=== PATIENT | female | born 1955 | race Caucasian/White ===

== ENCOUNTER 2016-03-13 08:07 | Day surgery (SDC) | payer BC ==
[~2016-03-13] VITALS: Ht 167.6 cm; Wt 72.7 kg
[~2016-03-13 08:07] MED LIST: ACET500T98 PO; ASPI-535 PO; benazepril PO; creon PO; metformin PO
[2016-03-13 08:50] VITALS: Ht 167.6 cm; Wt 72.7 kg
[2016-03-13] MEDS ORDERED: RELIEF PO (08:57)
[2016-03-13] MEDS ORDERED: NEXIUM PO (08:57)
[2016-03-13 09:23] VITALS: BP 173/84; PULSE 55; RESP 24
[2016-03-13] MEDS ORDERED: MIDAZOLAM 1 MG/ML 2 ML INJ ONE ×2 (10:37)
[2016-03-13] MEDS ORDERED: FENTAnyl 50 MCG/ML VIAL ONE (10:37)
[2016-03-13 10:53] VITALS: BP 135/74; RESP 20
--- NOTE | 2016-03-14 00:35 | GILP ---
DATE OF PROCEDURE: NAME OF PROCEDURE: Colonoscopy. SURGEON: Melania Cordero MD PREOPERATIVE DIAGNOSIS: Screening colonoscopy. POSTOPERATIVE DIAGNOSES 1. Colonoscopy all the way to the cecum. 2. Poor prep making the exam suboptimal. 3. Internal hemorrhoids. 4. No gross neoplasm was identified. INDICATION FOR THE PROCEDURE: Ms. Xochitl Viveros is a 60-year-old female patient who was scheduled for screening colonoscopy. The procedure and possible complications were well explained to the patient, she understood and cons ented to the procedure. DESCRIPTION OF PROCEDURE: Under the influence of fentanyl and Versed, the colonoscope was carefully introduced in the rectum and under direct vision, it was advanced all the way to the cecum. FINDINGS: The patient had poor prep making the exam suboptimal. The patient was noted to have inte rnal hemorrhoids. No gross neoplasm was identified. She tolerated the procedure very well and there was no complication from the procedure. At the end of the procedures, she was awake with stable vital signs and she was discharged home to the care of her family. IMPRESSION: 1. Colonoscopy all the way to the cecum. 2. Poor prep making the exam suboptimal. 3. Internal hemorrhoids. 4. No colon neoplasm was identified. PLAN: Because of the suboptimal nature of the examination, the patient will need repeat colonoscopy with better preparation in 2 years. Dictated By: MELANIA HARRIS/LYNSEY Conf#: [id number] DID#: [id number]
== END 2016-03-13 11:43 | disposition home or self-care (01) ==
LOC: GIL 08:07
PROVIDERS: ATTEND Internal Medicine Gastroenterology
DX: Z12.11 Encounter for screening for malignant neoplasm of colon (principal); K64.8 Other hemorrhoids; I10 Essential (primary) hypertension; E11.9 Type 2 diabetes mellitus without complications
CPT/HCPCS: 45378; 82962; J2250; J3010; Z7610

== ENCOUNTER 2017-04-28 02:57 | Inpatient (IN) | END 2017-04-29 11:25 | disposition home or self-care (01) | DRG 694 ==

== ENCOUNTER 2017-05-02 17:39 | Emergency (ER) | END 2017-05-02 21:39 | disposition home or self-care (01) ==

== ENCOUNTER 2017-05-28 11:54 | Emergency (ER) | END 2017-05-28 15:55 | disposition home or self-care (01) ==

== ENCOUNTER 2017-08-07 12:21 | Day surgery (SDC) | END 2017-08-07 17:16 | disposition home or self-care (01) ==

== ENCOUNTER 2018-07-30 06:19 | Inpatient (IN) | payer BC ==
[2018-07-30] VITALS (25 sets, daily range): BP systolic 104–150; BP diastolic 59–75; PULSE 54–74; RESP 15–25; Ht 165.1 cm; Wt 60.8 kg
[~2018-07-30] VITALS: Ht 165.1 cm; Wt 60.8 kg
[~2018-07-30 06:19] MED LIST changes: -ACET500T98 PO; -ASPI-535 PO; +BENA40TA56 PO; +CEFAZOLIN 2 GM/50 ML (PMX) 50 ML IVPB SCH; +ESOM40CA PO; +LIPA1CAP PO; +METF850T13 PO; +SOD CHLORIDE 0.9% 1,000 ML IV SCH; -benazepril PO; -creon PO; -metformin PO
[2018-07-30] MEDS ORDERED: METF100010 ORAL (08:35)
[2018-07-30] MEDS ORDERED: LIPA1CAP45 ORAL (08:35)
[2018-07-30] MEDS ORDERED: GLIM4TAB ORAL (08:36)
[2018-07-30] MEDS ORDERED: BUPIVACAINE 0.25% (MPF) 30 ML INJ ONE (10:16)
--- NOTE | 2018-07-30 10:39 | PREAC ---
Date/Time of Note Date/Time of Note DATE: 07/30/18 TIME: 10:37 Anesthesia Eval and Record Evaluation Time Pre-Procedure Interview DATE: 07/30/18 TIME: 10:37 Age 63 Sex female NPO: 8 hrs Preoperative diagnosis Thyroid mass Planned procedure Total Thyroidectomy Past Medical History Past Medical History: Includes Cardio: HTN, Dyslipidemia Endo: Diabetes GI: GERD Surgery & Anesthesia Issues No known issue Meds Anticoagulation: No Beta Shelbie within 24 hr: No Reason Beta Shelbie not given: Pt. not on B-Shelbie Reported Medications Glimepiride* (Glimepiride*) 4 Mg Tablet, 1 TAB ORAL BID 07/30/18 Jvjfat-Suxkaavl-Hxsapfw* (Diamond CARRILLO* 36,000) 36,000 L-114,000-180,000 Unit Capsule., 1 CAP ORAL DAILY 07/30/18 Metformin Hcl* (Metformin Hcl*) 1,000 Mg Tablet, 1 TAB ORAL BID 07/30/18 Esomeprazole Mag Trihydrate (Nexium) 40 Mg Capsule., 40 MG PO DAILY, #30 CAP 08/07/17 Benazepril Hcl* (Benazepril Hcl*) 40 Mg Tablet, 40 MG PO DAILY, #30 05/28/17 Discontinued Reported Medications Qvybpa-Lqersrtb-Jwpljft* (Diamond CARRILLO* 3,000) 3,000 L-9,500-15,000 Unit Capsule., 3000 MG PO DAILY, #30 05/28/17 Metformin Hcl* (Metformin Hcl*) 850 Mg Tablet, 850 MG PO BID, #60 05/28/17 Current Medications Sodium Chloride 1,000 ml @ 75 mls/hr [id number] IV Last administered on 07/30/18at 08:53; Admin Dose 75 MLS/HR; Start 07/30/18 at 06:00; Stop 07/30/18 at 19:19 Cefazolin Sodium/ Dextrose 50 ml @ 100 mls/hr PREOP IVPB ; Start 07/30/18 at 06:00; Stop 07/30/18 at 16:00 Meds reviewed: Yes Allergies Coded Allergies: No Known Allergy (Unverified , 07/30/18) Allergies Reviewed: Yes Labs/Studies Labs Reviewed: Reviewed by anesthesiologist test: N/A Studies: ECG Pre-procedure Exam Last vitals Vital Signs Date Temp Pulse Resp B/P (MAP) Pulse Ox O2 O2 Flow FiO2 Time Delivery Rate 07/30/18 98.3 72 16 123/75 99 Room Air 08:31 (91) Airway: Adequate mouth opening, Adequate thyromental dist Mallampati: Mallampati II Teeth: Normal Lung: Normal Heart: Normal ASA Physical Status ASA physical status: 3 Emergency: None Planned Anesthetic General/MAC: ETT Planned Pain Management Parenteral pain med Pre-operative Attestations Prior to commencing anesthesia and surgery, the patient was re-evaluated, there was verification of: *The patient's identity *The results of appropriate recent lab work and preoperative vital signs *The above evaluation not changing prior to induction *Anesthetic plan, risk benefits, alternative and complications discussed with patient/family; questions answered; patient/family understands, accepts and wishes to proceed. ALEXANDRA CHOI MD Jul 30, 2018 10:39
[2018-07-30] MEDS ORDERED: MIDAZOLAM 1 MG/ML 2 ML INJ ONE (10:41)
[2018-07-30] MEDS ORDERED: hydrALAzine 20 MG INJ ONE (11:30)
[2018-07-30] MEDS ORDERED: ONDANSETRON 4 MG INJ ONE ×2 (12:14→12:35)
[2018-07-30] MEDS ORDERED: LIDOCAINE 2% (SDV) 5 ML INJ ONE (12:16)
[2018-07-30] MEDS ORDERED: ETOMIDATE 20 MG INJ ONE (12:16)
[2018-07-30] MEDS ORDERED: ROCURONIUM 50 MG INJ ONE (12:16)
[2018-07-30] MEDS ORDERED: CEFAZOLIN 1 GM INJ ONE (12:16)
--- NOTE | 2018-07-30 12:22 | OPR ---
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 total thyroidectomy 2. platysmal localized adjacent tissue transfer with the use of skin flaps 14 sq cm defect of the anterior neck 3. 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 She underwent genetic testing which indicated a high risk for cancer. She is brought to the OR for a total thyroidectomy. Risks alternatives benefits and personal were discussed the patient. Potential complications including but not limited to bleeding infection recurrent laryngeal nerve injury with sequelae of voice changes versus hoarseness and possible need for tracheostomy if both nerve s were injured. She expressed understanding and consents to the operation. Procedure Description Patient is taken to the OR and prepped and draped in usual sterile fashion. Surgical timeout was performed. IV antibiotics given. Collar incision was made with a 15 blade. Dissection cautery was carried down through the platysmal layer. Superior inferior platysmal flaps are created. Strap muscles were then divided in the midline. Felton retractors were placed. Attention was then pa id to the left thyroid. The left superior and inferior poles were mobilized. The middle thyroidal vein is ligated with handheld LigaSure. Continued blunt dissection was made laterally pain careful attention to the recurrent laryngeal nerve. This area was then mobilized anteriorly. The posterior is small spaces also bluntly dissected out and mobilized. Attention was then paid to the right thyroid. The middle thyroid vein is ligated using a LigaSure. The superior inferior poles were mobilized using handheld LigaSure. Great attention was paid to keep the recurrent laryngeal nerve out of harm's way and the right thyroid was reflected anteriorly. The specimen was then removed from the surgical site and surgical markings were placed. Single short right upper pole single long right lower pole double short left upper pole double long left lower pole markings were placed. The surgical site is irrigated and a Valsalva maneuver of 40 cm of water was performed. There is no evidence of any bleeding. The irri gation is suctioned out and the strap muscles were reapproximated with interrupted 3-0 Vicryl. Due to the tissue defect localization to his transfer with these of skin flaps was performed. Multilayer closed with interrupted 3-0 Vicryl with approximation of the superior inferior platysmal flaps and the skin is closed using running 4-0 Monocryl. Therapeutic subcutaneous local anesthesia was injected at the incision site. Steri-Strips and dry dressings were applied. Fernando REEVES Jul 30, 2018 12:22
[2018-07-30] MEDS ORDERED: LABETALOL HCL 20MG INJ IV PRN (12:30)
[2018-07-30] MEDS ORDERED: ONDANSETRON 4 MG INJ IV PRN (12:30)
[2018-07-30] MEDS ORDERED: HYDROCODONE/APAP (5/325) TAB PO PRN (12:30)
[2018-07-30] MEDS ORDERED: MEPERIDINE 25 MG INJ IV PRN (12:30)
[2018-07-30] MEDS ORDERED: HYDROmorphONE 1 MG/5 ML IV SYRINGE IV PRN ×2 (12:30)
[2018-07-30] MEDS ORDERED: METOCLOPRAMIDE 10 MG INJ IV PRN (12:30)
[2018-07-30] MEDS ORDERED: FENTAnyl 50 MCG/ML VIAL IV PRN (12:30)
[2018-07-30] MEDS ORDERED: morphine 2 MG INJ IV PRN (12:30)
[2018-07-30] MEDS ORDERED: DIPHENHYDRAMINE 50 MG INJ IV PRN (12:30)
--- NOTE | 2018-07-30 12:33 | PAC ---
Date/Time of Note Date/Time of Note DATE: 07/30/18 TIME: 12:32 Post-Anesthesia Notes Post-Anesthesia Note Last documented vital signs Vital Signs Date Temp Pulse Resp B/P (MAP) Pulse Ox O2 O2 Flow FiO2 Time Delivery Rate 07/30/18 98.3 72 16 123/75 99 Room Air 08:31 (91) Activity: WNL Respiratory function: WNL Cardiovascular function: WNL Mental status: Baseline Pain reasonably controlled: Yes Hydration appropriate: Yes Nausea/Vomiting absent: Yes Comments BP:117/64, P:72, Spo2:100%, T:98,8 ALEXANDRA CHOI MD Jul 30, 2018 12:33
[2018-07-30] MEDS: SOD CHLORIDE 0.9% 1,000 ML IV SCH ×2 (16:21→22:16)
[2018-07-30] MEDS: INSULIN ASPART [NOVOLOG] 3 ML PEN SC SCH ×2 (17:55→21:28)
[2018-07-30] MEDS: metFORMIN 500 MG TAB PO SCH (17:58)
[2018-07-30] MEDS: CEFAZOLIN 2 GM/50 ML (PMX) 50 ML IVPB SCH (18:00)
--- NOTE | 2018-07-30 20:26 | HP ---
DATE OF ADMISSION: 07/30/2018 CHIEF COMPLAINT AND HISTORY OF PRESENT ILLNESS: The patient is a 63-year-old female with history of pancreatic tumor, status post Whipple procedure, hypertension, diabetes, history of left ureteral sto ne. The patient was seen by Dr. Thornton as an outpatient. The patient had follicle cells on fine needle aspiration of thyroid. She underwent genetic testing which indicated high risk cancer. The patient was brought into hospital today and underwent total thyroidectomy. The patient has significant post operative pain and is being admitted for further evaluation and management. The patient denied any c hest pain or shortness of breath. No reported abdominal pain. No reported headache and syncope. No history of leg pain. No history of numbness, tingling in any extremity. REVIEW OF SYSTEMS: Other than postoperative pain, rest of review of systems was unremarkable. ALLERGIES: NONE. PAST SURGICAL HISTORY: As stated above. In addition, the patient is also status post cholecystectom y and hysterectomy. FAMILY HISTORY: Positive for pancreatic tumor in sister. SOCIAL HISTORY: Positive for smoking. PHYSICAL EXAMINATION: GENERAL: Revealed the patient to be awake, alert. VITAL SIGNS: Temperature 97.6, pulse 66, respirations 16, blood pressure 112/62, O2 saturation 97% o n 2 liters nasal cannula. HEENT: No eye discharge or redness. Conjunctivae and lids are normal. Nose and ears are normal. NECK: The patient is status post total thyroidectomy. CHEST: Fairly clear. CARDIOVASCULAR: S1, S2 normal. No murmur. ABDOMEN: Soft, nondistended, nontender. EXTREMITIES: No edema. NEUROLOGIC: The patient is awake, alert with no gross focal deficit. LABORATORY DATA: Done this morning: WBC 11.6, hemoglobin 11.2, platelet 275. Sodium 141, potassium 3.7, BUN 13, creatinine 0.5. AST 14, ALT 18, alkaline phosphatase 53, albumin 3.6. IMPRESSION: 1. Follicular cells on FNA of thyroid, status post total thyroidectomy. 2. Diabetes. 3. Hypertension. 4. History of gastric ulcer. PLAN: The patient will be admitted on medical floor. The patient will be started on diet. For pain control, the patient will be given Tylenol, Alex and IV morphine. The patient's home medication in cluding benazepril, proton pump inhibitor, Creon and metformin were discontinued. We will hold off o n Amaryl. She will be put on sliding scale insulin. Further evaluation and management will depend o n patient's hospital course. We will use SCD for DVT prophylaxis. Dictated By: OJSE L ABRAHAM/LYNSEY Conf#: [id number] DID#: [id number] CC: BEE THORNTON MD;*End*
[2018-07-31 00:01] VITALS: BP 134/65; PULSE 66; RESP 17
[2018-07-31] MEDS: CEFAZOLIN 2 GM/50 ML (PMX) 50 ML IVPB SCH ×2 (02:26→10:37)
[2018-07-31] MEDS ORDERED: PANTOPRAZOLE (EC) 40 MG TAB PO SCH (06:00)
[2018-07-31] MEDS: SOD CHLORIDE 0.9% 1,000 ML IV SCH (06:00)
[2018-07-31 07:35] VITALS: BP 128/71; PULSE 68; RESP 18
[2018-07-31] MEDS: metFORMIN 500 MG TAB PO SCH (08:50)
[2018-07-31] MEDS: INSULIN ASPART [NOVOLOG] 3 ML PEN SC SCH ×2 (08:52→13:11)
[2018-07-31] MEDS ORDERED: BENAZEPRIL 40 MG TAB PO SCH (09:00)
[2018-07-31] MEDS ORDERED: CREON (12k-38k-60k) 1 CAP PO SCH (09:00)
--- NOTE | 2018-07-31 09:59 | PDOCDIS ---
Discharge Instructions CONDITION [id number] Patient Condition: [id number] Stable HOME CARE INSTRUCTIONS: [id number] Diet Instructions: Jfvno1h ACTIVITY: Prijx2Zz Activity Restrictions: Ebixh1j Slowly Increase Activity Rest between Activity Avoid heavy lifting Do not operate Machinery Do not operate Power Tool Avoid Heavy Housework [id number] Bathing Restrictions: Ibewo2l Sponge Bath FOLLOW UP/APPOINTMENTS Follow-up Plan FU W/Primary r MD Call 911 or go to the nearest hospital if symptoms get worse dw patient NAVYA KUHN Jul 31, 2018 09:58
--- NOTE | 2018-07-31 13:20 | PN ---
DATE: 07/31/2018 Postop day #1 status post total thyroidectomy for follicular lesion of the left thyroid. SUBJECTIVE: Feels good. No complaint, minimal pain, no nausea, no vomiting. Has tolerated diet. Minimal pain upon swallowing. No oral tingling or numbness. OBJECTIVE: GENERAL: Awake, alert, oriented. HEART: Regular. LUNGS: Clear. ABDOMEN: Soft. Dressing is intact. There is no swelling of the neck was clean. LABORATORY DATA: Yesterday at 12:39, calcium level was 8.6 and albumin was 3.6. Then, it was repeated, calcium at 4:00 a.m. today is 8.2 and albumin is 3.3. ASSESSMENT: This is a 63-year-old female who had nodular left thyroid. Fine needle aspiration revealed follicular cells. Recommendation for total thyroidectomy was done. This is postop day #1. The patient is quite stable. There is slight concern that yesterday postop calcium was 8.6. We do not know about before operation and today, calcium is 8.2. PLAN: I am going to repeat calcium level today right now and if it is normal or at level above 8, we are going to discharge the patient since also she wants to go home. I advised the patient in any case to take calcium pills that she has at home, 1000 mg b.i.d. and vitamin D 1000 units b.i.d. for a few days until she goes to Dr. Herron and Dr. Thornton's office and sees Dr. Thornton next week or the day after that. The patient is quite intelligent and understands and she is going to follow. As I said, at this time she is denying any circumoral numbness or tingling of the fingers. Dictated By: WILLIAM LEMUS MD PS/NTS Conf#: [id number] DID#: [id number] CC: BEE THORNTON MD;*EndCC* MTDD
[2018-07-31 13:53] VITALS: BP_SYST 115; BP_SYST 134; BP_DIAS 56; BP_DIAS 67; PULSE 49; PULSE 70; RESP 18
== END 2018-07-31 14:20 | disposition home or self-care (01) | DRG 627 ==
LOC: REC 06:19 → MS1 13:43
PROVIDERS: ADMIT Surgery; ATTEND Surgery
PROC: 0GTK0ZZ Resection of Thyroid Gland, Open Approach (ICD-10-PCS; principal; 2018-07-30 10:00)
DX: C73 Malignant neoplasm of thyroid gland (principal); E04.1 Nontoxic single thyroid nodule; I10 Essential (primary) hypertension; E11.9 Type 2 diabetes mellitus without complications; G89.18 Other acute postprocedural pain
CPT/HCPCS: 80053; 82310; 82962; 85025; 88307; J0360; J0690; J1170; J1815; J2250; J2405; J3010; J7030

== ENCOUNTER → 2018-10-07 | Outpatient (CLI) | payer BC ==
[~2018-10-07] MED LIST changes: -CEFAZOLIN 2 GM/50 ML (PMX) 50 ML IVPB SCH; +GLIM4TAB ORAL; -LIPA1CAP PO; +LIPA1CAP45 ORAL; +METF100010 ORAL; -METF850T13 PO; -SOD CHLORIDE 0.9% 1,000 ML IV SCH
== END | disposition home or self-care (01) ==
LOC: NUC 13:25
PROVIDERS: ATTEND Specialist
DX: C73 Malignant neoplasm of thyroid gland (principal)
CPT/HCPCS: 79005; A9517